=== PATIENT | female | born 1965 | race Caucasian/White ===

== ENCOUNTER 2025-01-18 11:08 | Emergency (ER) | payer BC, MEDICARE, SELFPAY ==
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
--- OUTSIDE RECORDS SUMMARY | 2022-09-18 09:18 | XMS_ITS | Continuity of Care Document ---
Author Organization [facility] b[facility]argav Address [address] [place] [address] [place] [address] Phone Care Team Providers Care Masonry Supervisor Name Role Phone Will Trace DELGADO Unavailable Unavailabl e Allergies, Adverse Reactions, Alerts Substance Reaction Status Criticality Sulfa (Sulfonamide Antibiotics) Active No Information PENICILLIN Active No Information lactase Active No Information Medications Medication Instructions Dosage Effective Dates (start - stop) Status Comments Dyanavel XR 20 mg tablet, extended release take 1 tablet by oral route every day in the morning 20 MG - Active meloxicam 15 mg tablet take 1 tablet by oral route every day 15 MG - Active Xanax 1 mg tablet take 1 tablet by oral route 3 times every day 1 MG - Active bupropion HCl XL 150 mg 24 hr tablet, extended release take 1 tablet by oral route every day 150 MG - Active fluoxetine 20 mg capsule take 1 capsule by oral route every day in the morning 20 MG - Active ACETAMINOPHEN-CODE INE (unknown strength) take 1 - 2 tablet by oral route every 6 hours as needed Not Available - Active Procedures Procedure Date OFFICE/OUTPATIENT VISIT, NEW Advance Directives Directive Yes / No Effective Date File Name No Information Encounters Encounter Description Practice Location Reason(s) For Visit Diagnoses Date Provider Providers Copied on Encounter [facility], [address] [place] [address] [place], [id number] , [place] tel: [phone] [facility] No Information 3 Will Trace. [address] [facility] Janie Clarklawanda [place], [place], [id number] , [place]. tel: [phone] [facility], [address] [facility] [place], [id number] , [place] tel: [phone] [facility] [place] No Information 2 Will Trace. [address] [place], [id number] , [place]. tel: [phone] OFFICE/OUTPA TIENT VISIT, [facility], [address] [place], [id number] , [place] tel: [phone] [facility] Widespread pain (chief complaint) Chronic pain syndromeOther cervical disc degeneration at C5-C6 levelOther intervertebral disc degeneration, lumbar regionBilateral primary osteoarthritis of kneeCervicalgiaOt her longwall shearer operator (current) drug therapyEncounter for therapeutic drug level monitoring 2 Will Trace. [address] [place], [id number] , [place]. tel: [phone] Referring Provider: [address], [place], [address]. [phone] Family History Family Member Type Diagnosis Age At Onset No Information Payers Payer name Insurance type Covered alliance party ID Authoriza tioscar(s) Blue Cross Atul Apodaca BL [id number] 7 Social History Type Description Quantity Date Captured Comments Sex Female Smoking Status No Information Chief Complaint And Reason For Visit No Information Reason For Referral Reason For Referral No Information Plan Of Treatment Date Type Action Status Goal Tobacco Use. Due on 023 due [...] Goal PHQ-9. Due on du e Goal Weight. Due on d ue Goal HPV. Due on due Goal Zoster vaccine ( ). Due on due Goal Review Allergy L ist. Due on due Goal FIT. Due on due Goal HPV. Due on due Goal Weight. Due on d ue Goal Lipid panel. Due on due Goal Review Allergy L ist. Due on due Goal FIT. Due on due Goal Height. Due on d ue Goal Unhealthy drug u se screening. Due on due Goal Medication Recon ciliation. Due on due Goal FIT-DNA. Due on due Goal Zoster vaccine ( ). Due on due Goal Update Social Hi story. Due on due Goal CT-Colonography. Due on due Goal Tobacco Use. Due on due Goal PHQ-9. Due on du e Goal Hepatitis C scre ening. Due on due Future Order: Radiology Order MR I Cervical Spine W/O Dye ([id number]), Ordered on: Ordered History Of Present Illness Encounter Date Complaint History Of Prese nt Illness Widespread pain Severity level i s 10. Location of the pain is lower back, neck, bilateral knee and bilateral mid foot. It occurs persistently. The problem is stable. Symptom is aggravated by bending, sitting, standing, walking, lifting, lying down, stairs and movement. Relieving factors include heat, cold and chiropractic. Comments: Shira recio resents for a new [...] her right knee with very limited relief. Functional Status Date Functional Assessmen t No Information Instructions Date Instruction Additional Infor mation No Information Assessments Type Assessment Date No Information Patient Care Teams Name Effective Dates (start - stop) Status Members No Information
--- OUTSIDE RECORDS SUMMARY | 2025-01-18 11:11 | XMS_ITS | Clinical Summary ---
Author Organization [facility] Address [address] [place] [id number] Care Team Providers Care Intake Counselor Name Role Phone Carmelita Bruce Primary Care Provider Allergies Active Allergy Reactions Criticality Noted Date Comments Meperidine Edema 06/25/2007 Haloperidol Other - Describe In Comment Field 11/04/2016 Neurologic reaction Penicillins Rash 06/25/2007 Sulfa (Sulfonamide Antibiotics) 06/25/2007 Sertraline Rash,Itching 06/25/2007 Medications Amphetamine-Dext roamphetamine (ADDERALL) 30 mg tablet Take 1 tablet by mouth once daily 0 05/29/20 18 Active dextroamphetamin e-amphetamine (ADDERALL) 20 mg tablet TAKE 1 TABLET BY MOUTH ONCE A DAY IN THE AFTERNOON IN ADDITION TO SCHEDULED MORNING DOSE. 08/08/19 21 Active ALPRAZolam (XANAX) 0.5 mg tablet 06/05/20 21 Active betamethasone dipropionate 0.05% (DIPROSONE LOTION 0.05%) lotionIndication s:Scalp psoriasis APPLY TOPICALLY TO AFFECTED AREA TWICE A DAY 60 mL 1 02/26/20 23 Active FLUoxetine (PROZAC) 40 mg capsule Take 40 mg by mouth once daily. 01/06/20 24 Active gabapentin (NEURONTIN) 300 mg capsuleIndicatio ns:Carpal tunnel syndrome on left TAKE 1 CAPSULE BY MOUTH THREE TIMES DAILY. MORNING, MIDDAY AND EARLY EVENING PLUS 600MG AT BEDTIME. 270 Capsule 3 03/22/20 24 Active busPIRone (BUSPAR) 15 mg tablet Take 15 mg by mouth two times daily. Active acetaminophen-co deine (TYLENOL #3) 300-30 mg per tabletIndication s:Lumbar radiculopathy TAKE 1 TABLET BY MOUTH 3 TIMES DAILY IF NEEDED FOR PAIN. 60 Tablet 1 08/15/19 25 Active mirtazapine (REMERON) 7.5 mg tablet take 1 tablet by mouth every day at night 08/09/19 25 Active fluticasone (50 mcg per actuation) nasal solution (FLONASE)Indicat ions:Bronchitis Inhale 2 Sprays in both nostrils once daily. 48 g 2 10/11/19 25 Active durable medical equipment (DME)Indications :Peroneal tendinitis of right lower extremity Airselect, Standard, Medium 01EF-M Length of Use: 99 months 12/03/19 25 Active cyclobenzaprine (FLEXERIL) 10 mg tabletIndication s:Muscle spasm TAKE 1 TABLET (10 MG) BY MOUTH 3 TIMES DAILY IF NEEDED FOR MUSCLE SPASM. 60 Tablet 3 01/06/20 25 Active gabapentin (NEURONTIN) 600 mg tabletIndication s:Cervical radiculopathy TAKE 1 TABLET BY MOUTH EVERYDAY AT BEDTIME 90 Tablet 1 01/09/20 25 Active triamcinolone 0.1 % creamIndications :Dermatitis APPLY TOPICALLY TO AFFECTED AREA (S) 3 TIMES A DAY 80 g 1 10/11/19 25 025 Discontinued(* Med complete/Regim en complete/Level of care change) gabapentin 600 mg tabletIndication s:Cervical radiculopathy TAKE 1 TABLET BY MOUTH EVERYDAY AT BEDTIME 90 Tablet 10/11/19 25 025 Discontinued cyclobenzaprine 10 mg tabletIndication s:Muscle spasm Take 1 Tablet (10 mg) by mouth 3 times daily if needed for Muscle Spasm. 60 Tablet 3 10/11/19 25 025 Discontinued Hospital, Clinic, or Other Facility Administered Medication Ordered Dose Route Frequency Start Date End Date Status betamethasone acet,sod phos 9 mg injection (CELESTONE SOLUSPAN)Indications:Osteo arthritis of right glenohumeral joint 9 mg IArtic ONE TIME 12/22/2024 12/22/2024 Ended betamethasone acet,sod phos 3 mg injection (CELESTONE SOLUSPAN)Indications:Tendo nitis of upper biceps tendon of right shoulder 3 mg IArtic ONE TIME 12/22/2024 12/22/2024 Ended Active Problems Problem Noted Date Diagnosed Date Depression, major, single episode, moderate 06/08 Arthropathy of right wrist 04/30/2015 Secondary osteoarthritis of right wrist 03/06/20 15 Medial compartment osteoarthritis of left knee 0 11/01/2014 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 08/28/2014 Kienbock's avascular necrosis of lunate, adult 0 01/19/2013 Lunate fracture, closed 01/19/2013 Anxiety disorder 12/24/2012 Migraine 07/29/2012 Dysthymic disorder 06/25/2007 Overview (06/25/2007): Depression and anxiety Resolved Problems Problem Noted Date Diagnosed Date Resolved Date Osteoarthritis of left knee 06/18/2015 09/05/2024 Osteoarthritis of left knee 06/18/2015 09/05/2024 Mild osteoarthritis of left knee 06/18/2015 01/02/2017 Tendonitis of wrist, right 08/12/2012 0 07/31/2014 Encounters Date Type Department Care Team Description 01/12/2025 Orders Only [facility] Scanner 1 scan: (1-Ord) [facility], FLUOROSCOPICALLY GUIDED INJ, 01/12/2025 01/05/2025 Refill [facility] [address] [place] [address] Carmelita Bruce PA Refill Request (Gabapentin) 01/05/2025 Refill [facility] [address] [place] [address] Alistair Fox MD Refill Request (Cyclobenzaprine) 12/27/2024 11:10 AM CDT Office Visit [facility] [address] [place] [address] Carmelita Bruce PA Blood Pressure (Was elevated when she went to chiropractor / gets dizzy sometimes) 12/27/2024 Travel 12/22/2024 8:10 AM CDT Procedure Only [facility] [address] [place] [address] Alistair Fox MD Procedure (USGI Right shoulder glenohumera... 12/22/2024 Travel 12/14/[address] [place] [address] Alistair Fox MD Immunization/Injection (intralaminar steroid epidural injection) 12/02/2024 Travel 12/01/[address] [place] [address] Alistair Fox MD DME Supply (Needs walking boot) 11/30/2024 9:00 AM CDT Procedure Only [address] [place] [address] Alistair Fox MD Procedure (US guided steroid injection rig... 11/29/2024 Travel 11/09/[address] [place] [address] Carmelita Bruce PA Medication Management (Prednisone) 11/02/2024 1:45 PM CDT Office Visit [address] [address] Ziggy Paul DPM Follow Up (Right foot-injection ) 11/02/2024 Travel 10/26/2024 12:00 PM CDT Ancillary Procedure [address] [place] [address] 10/26/2024 Travel 10/26/[address] [address] Alistair Fox MD Refill Request (Acetaminophen-codeine ) 10/25/[address] [address] Ziggy Paul DPM Medication Management 10/20/[address] [address] Carmelita Bruce PA Imaging from Last 3 Months Immunizations Immunization Administration Dates Next Due COVID-19 vaccine (Moderna 100mcg/0.5mL) MARTITA TRAVIS 08/06/2020 Influenza, IIV3 (Age >=3 years) 03/05/2011 Influenza, IIV4 04/04/2022,,03/27/2020,2018,04/04/2016,03/31/2014 Influenza, IIV4 (=>6mos) MDV 03/28/2020,03/31/20 17 Mumps 10/30/1978 Polio Virus, Unspecified 10/30/1978 Td, Preservative Free (age > = 7 Years) 09/13/2009 Tdap 03/31/2017 Family History Medical History Relation Name Comments Heart Disease Father Bypass Hyperlipidemia Father Cancer-breast Maternal Aunt over 50 Stroke Maternal Grandfather Diabetes Maternal Grandmother Arthritis Mother GI Disease Mother Ulcers Hypertension Mother Cancer Paternal Grandfather luekemi a Heart Disease Paternal Grandmother Cancer Sister Ovarian, contai elvira and removed Relation Name Status Comments Father Maternal Aunt Maternal Grandfather Maternal Grandmother Mother Paternal Grandfather Paternal Grandmother Sister Social History Tobacco Use Types Packs/Day Years Used Date Smoking Tobacco: Every Day Cigarettes 0.3 40.1 Started: 09/26/1983; Last attempted to quit: 09/30/2021 Smokeless Tobacco: Never Tobacco Cessation:Ready to Q uit: No; Counseling Given: Yes Alcohol Use Standard Drinks/Week Comments No 0 (1 standard drink = 0.6 oz pur e alcohol) sober since 1999 PHQ-2 Answer Date Recorded PHQ-2 TOTAL SCORE 1 02/06/2020 Social Connections Answer Date Recorded Do you often feel lonely or isolated from those around you? 0 05/08/2023 Financial Resource Strain Answer Date R ecorded Difficulty of Paying Living Expenses Not on file 05/08/2023 Difficulty of Paying Living Expenses 3 05/08/2023 Food Insecurity Answer Date Recorded Do you worry your food will run out before you are able to buy more? 1 05/08/2023 Transportation Needs Answer Date Record ed Does lack of transportation keep you from medica l appointments? 1 05/08/2023 Does lack of transportation keep you from work, meetings or getting things that you need? 1 05/08/2023 Housing Stability Answer Date Recorded What is your housing situation today? 1 05/08/2023 Comments No Sex and Gender Information Value Date Recorded Sex Assigned at Not on file Legal Sex Female 5:25 AM ENVIRONMENTAL HEALTH SAFETY MANAGER Gender Identity Not on file Sexual Orientation Not on file Occupation Industry Job Start Date Job End Date Not on file Not on file Not on file Not on file Obstetrics History Para Term AB IAB SAB Ectopic Multiple Livin g Live Births 2 2 0 2 Date Outcome GA Total Labor Labor/2nd/3rd Weight Sex Type Anes PTL Ellen A1 A5 Name Clin Para C-Secti on Para C-Secti on Last Filed Vital Signs Vital Sign Reading Time Taken Comments Blood Pressure 131/80 12/27/2024 11:17 AM CDT Pulse 81 12/27/2024 11:17 AM CDT Temperature 36.5 C (97.7 F) 12/22/2024 8:28 AM CDT Respiratory Rate 16 09/25/2020 10:30 AM CDT Oxygen Saturation 99% 12/22/2024 8:28 AM CDT Inhaled Oxygen Concentration - - Weight 76.7 kg (169 lb) 12/27/2024 11:17 AM CDT Height 159 cm (5' 2.6) 05/08/2023 3:18 PM ENVIRONMENTAL HEALTH SAFETY MANAGER Body Mass Index 30.32 05/08/2023 3:18 PM ENVIRONMENTAL HEALTH SAFETY MANAGER Plan of Treatment Upcoming Encounters Date Type Department Care Team (Late st Contact Info) Description 02/08/2025 11:00 AM CDT Office Visit [facility] [address] [place] [address] Alistair Fox MD [address] [place] [address] 02/10/2025 10:30 AM CDT Procedure Only [facility] [address] [place] [address] [facility] [address] [place] [address] 02/13/2025 3:20 PM CDT Office Visit [facility] [address] [place] [address] Carmelita Bruce PA [address] [place] [address] 02/27/2025 7:30 AM CDT Hospital Encounter [facility] [address] [place] [address] Ziggy Paul DPM [address] [place] [address] 02/27/2025 7:30 AM CDT - 02/27/2025 9:30 AM CDT Surgery [facility] [address] [place] [address] Ziggy Paul DPM [address] [place] [address] REPAIR PERONEAL TENDON 03/01/2025 1:00 PM CDT Office Visit [facility] [address] [place] [address] Ziggy Paul DPM [address] [place] [address] 03/14/2025 1:00 PM CDT Office Visit [facility] [address] [place] [address] Ziggy Paul DPM [address] [place] [address] 04/11/2025 3:00 PM ENVIRONMENTAL HEALTH SAFETY MANAGER Office Visit [facility] [address] [place] [address] Ziggy Paul DPM [address] [place] [address] Scheduled Procedures Name Priority Associated Diagnoses Date/Ti me REPAIR PERONEAL TENDON Elective Peroneal tendinitis of right lower extremity 02/27/2025 7:30 AM CDT Health Maintenance Due Date Last Done Comments Pneumococcal series for age 50+ (1 of 2 - PCV) 1982 Zoster (shingles) series for age 50+ (1 of 2) 2013 Mammogram for age 45-75 07/06/2019 07/06/19 19, 11/17/2012, 03/05/2011, Additional history exists Depression screening for age 12+ 02/05/2021 02/06/2020, 09/21/2017, 06/07/2016, Additional history exists Pap test for age 21-65 07/06/2023 9, 07/06/2018, 11/17/2012, Additional history exists COVID-19 vaccine series ( season) 2024 05/16/2021, 09/27/2020, 08/06/2020 BMI (ht and wt on same day) for age 18+ 05/08/2024 05/08/2023, 12/29/2022, 07/29/2022, Additional history exists Influenza Vaccine (#1) 2025 2, 03/27/2021, 03/28/2020, Additional history exists Tetanus booster 03/31/2027 03/31/2017, 09/13/2009 Fecal testing sDNA-FIT (Cologuard) for age 45-75 11/10/2027 11/09/2024 Lipids for age 45-75 12/30/2027 12/29/2022, 02/13/2021, 07/06/2018, Additional history exists RSV vaccine for adults or (1 - 1-dose 75+ series) 2038 HIV for age 15-65 Completed 06/29/2007 Hepatitis C screening for age 18-79 Completed 07/06/2018 Hepatitis B series for 19+ Aged Out N o longer eligible based on patient's age to complete this topic Goals Goal Patient Goal Type Associated Problems Recent Progress Patient-Stated? Author Autogenera alayna Goal Care Plan Autogenerated Problem No Mychart, Provider Procedures Procedure Name Priority Date/Time Associated Diagnosis Comments SCAN-OPERATIVE/PROCED URE REPORT 01/12/2025 12:00 AM CDT COMP METABOLIC PANEL Routine 12/27/2024 12:26 PM CDT Fatigue, unspecified type CBC WITH AUTO DIFFERENTIAL Routine 12/27/2024 12:26 PM CDT Fatigue, unspecified type BEDSIDE US STUDY ARCHIVE Routine 12/22/2024 8:47 AM CDT BEDSIDE US STUDY ARCHIVE Routine 11/30/2024 10:15 AM CDT Peroneal tendinitis of right lower extremity SDNA-FIT EXTERNAL (COLOGUARD) Routine 11/09/2024 11:00 AM CDT Screening for colorectal cancer XR KNEE WB 1 VIEW AP BILATERAL AND 2 VIEWS RIGHT Routine 10/26/2024 12:10 PM CDT S/P total knee arthroplasty, right LIPID PANEL W REFLEX MEASURED LDL Routine 12/29/2022 2:46 PM CDT Screening cholesterol level XR MAMMO BILAT SCREENING Routine 07/06/2018 2:09 PM ENVIRONMENTAL HEALTH SAFETY MANAGER Visit for screening mammogram ANTI HCV Routine 07/06/2018 1:50 PM ENVIRONMENTAL HEALTH SAFETY MANAGER Need for hepatitis C screening test QUARTER [employer]PER[employer] THIN PREP PAP SCREEN IMAGED Routine 07/06/2018 1:29 PM ENVIRONMENTAL HEALTH SAFETY MANAGER Pap smear for cervical cancer screening ANTI HIV 1/2 Routine 06/29/2007 3:56 PM ENVIRONMENTAL HEALTH SAFETY MANAGER Screening Exam Venereal Disease from Last 3 Months or Most Recently Relevant to Health Maintenance Results * SCAN-OPERATIVE/PROCEDURE REPORT (01/12/2025 12:00 AM CDT) us Scanner OTHER Final Result * (ABNORMAL) CBC AND DIFFERENTIAL (12/27/2024 12:26 PM CDT) WHITE BLOOD CELL COUNT 7.4 3.8 - 10.8 Thousand/u L [facility] RED BLOOD CELL COUNT 4.45 3.80 - 5.10 Million/uL [facility] HEMOGLOBIN 13.4 11.7 - 15.5 g/dL [facility] HEMATOCRIT 43.3 35.0 - 45.0 % [facility] MCV 97.3 80.0 - 100.0 fL [facility] MCH 30.1 27.0 - 33.0 pg [facility] MCHC 30.9(L) 32.0 - 36.0 g/dL [facility] Comment: For adults, a slight decrease in the calculated MCHC value (in the range of 30 to 32 g/dL) is most likely not clinically significant; however, it should be interpreted with caution in correlation with other red cell parameters and the patient's clinical condition. RDW 14.2 11.0 - 15.0 % [facility] PLATELET COUNT 356 140 - 400 Thousand/u L [facility] MPV 10.6 7.5 - 12.5 fL [facility] ABSOLUTE NEUTROPHILS 4,544 1,500 - 7,800 cells/uL [facility] ABSOLUTE LYMPHOCYTES 2,190 850 - 3,900 cells/uL [facility] ABSOLUTE MONOCYTES 459 200 - 950 cells/uL [facility] ABSOLUTE EOSINOPHILS 148 15 - 500 cells/uL [facility] ABSOLUTE BASOPHILS 59 0 - 200 cells/uL [facility] NEUTROPHILS 61.4 % [facility] LYMPHOCYTES 29.6 % [facility] MONOCYTES 6.2 % [facility] EOSINOPHILS 2.0 % [facility] BASOPHILS 0.8 % [facility] Blood BLOOD SPECIMEN / Unknown 12/27/2024 12:26 PM CDT 12/27/2024 12:26 PM CDT us Carmelita CHU HEMATOLOGY Final R esult [facility] [address] [place] [address], [employer] [address] [place] [address] * COMP METABOLIC PANEL (12/27/2024 12:26 PM CDT) GLUCOSE 85 65 - 99 mg/dL [facility] Comment: Fasting reference interval UREA NITROGEN (BUN) 10 7 - 25 mg/dL [facility] CREATININE 0.91 0.50 - 1.05 mg/dL [facility] EGFR 72 > OR = 60 mL/min/1. 73m2 [facility] BUN/CREATININE RATIO SEE NOTE: (calc) [facility] Comment: Not Reported: BUN and Creatinine are within reference range. SODIUM 140 135 - 146 mmol/L [facility] POTASSIUM 4.4 3.5 - 5.3 mmol/L [facility] CHLORIDE 104 98 - 110 mmol/L [facility] CARBON DIOXIDE 28 20 - 32 mmol/L [facility] CALCIUM 9.3 8.6 - 10.4 mg/dL [facility] PROTEIN, TOTAL 7.0 6.1 - 8.1 g/dL [facility] ALBUMIN 4.3 3.6 - 5.1 g/dL [facility] GLOBULIN 2.7 1.9 - 3.7 g/dL (calc) [facility] ALBUMIN/GLOBULIN RATIO 1.6 1.0 - 2.5 (calc) [facility] BILIRUBIN, TOTAL 0.6 0.2 - 1.2 mg/dL [facility] ALKALINE PHOSPHATASE 99 37 - 153 U/L [facility] AST 23 10 - 35 U/L [facility] ALT 23 6 - 29 U/L [facility] Blood BLOOD SPECIMEN / Unknown 12/27/2024 12:26 PM CDT 12/27/2024 12:26 PM CDT us Carmelita Nicolasa McLeran PA CHEMISTRY Final R esult [facility] [address] [place] [address], [place] [phone] [facility] [address] [place] [address] * BEDSIDE US STUDY ARCHIVE (12/22/2024 8:47 AM CDT) Narrative Ashley Ramirez - 12/22/2024 8:47 AM CDT The patient was seen for ultrasound guided injection by Dr. Ailstair Fox. Ultrasound was not used for diagnostic purposes, but to guide the needle placement and document the position of the injection. See patient's EPIC encounter for the detail of the procedure; see MITCH for saved images of the injection. Alistair Fox MD PROCEDURE ORD Final Resu lt * BEDSIDE US STUDY ARCHIVE (11/30/2024 10:15 AM CDT) Narrative Melodie Dumont R.T. (ARRT) - 11/30/2024 10:15 AM CDT The patient was seen for ultrasound guided injection by Dr. Alistair Fox. Ultrasound was not used for diagnostic purposes, but to guide the needle placement and document the position of the injection. See patient's EPIC encounter for the detail of the procedure; see MITCH for saved images of the injection. Alistair Fox MD PROCEDURE ORD Final Resu lt * SDNA-FIT EXTERNAL (COLOGUARD) [[id number]] (11/09/2024 11:00 AM CDT) NONINV COLON CA DNA+OCC BLD SCRN STL-IMP Negative Negative 11/14/2024 11:45 AM CDT [facility] (CLIA #:[id number]) Comment: The Cologuard (TM) test was performed on this specimen. NEGATIVE TEST RESULT. A negative Cologuard result indicates a low likelihood that a colorectal cancer (CRC) or advanced adenoma (adenomatous polyps with more advanced pre-malignant features) is present. The chance that a person with a negative Cologuard test has a colorectal cancer is less than 1 in 1500 (negative predictive value >99.9%) or has an advanced adenoma is less than 5.3% (negative predictive value 94.7%). These data are based on a prospective cross-sectional study of 10,000 individuals at average risk for colorectal cancer who were screened with both Cologuard and colonoscopy. (Jacque Marie et al, N Engl J Med 2014;370(14):1286- 1297) The normal value (reference range) for this assay is negative. COLOGUARD RE-SCREENING RECOMMENDATION: Periodic colorectal cancer screening is an important part of preventive healthcare for asymptomatic individuals at average risk for colorectal cancer. Following a negative Cologuard result, the [employer] and U.S. Multi-Society Task Force screening guidelines recommend a Cologuard re-screening interval of 3 years. References: [employer] Guideline for Colorectal Cancer Screening: https://www.cancer.org/cancer/ttghl-qksezr-amfksg/mokegskxl-bfuosrgzl-mwbujcp/ac s-rec ommendations.html.; Jesús DK, Erika CR, Lorena CastilloK, Colorectal Cancer Screening: Recommendations for Physicians and Patients from the U.S. Multi-Society Task Force on Colorectal Cancer Screening , Am J Gastroenterology 2017; 112:1966-8450. TEST DESCRIPTION: Composite algorithmic analysis of stool DNA-biomarkers with hemoglobin immunoassay. Quantitative values of individual biomarkers are not reportable and are not associated with individual biomarker result reference ranges. Cologuard is intended for colorectal cancer screening of adults of either sex, 45 years or older, who are at average-risk for colorectal cancer (CRC). Cologuard has been approved for use by the U.S. FDA. The performance of Cologuard was established in a cross sectional study of average-risk adults aged 50-84. Cologuard performance in patients ages 45 to 49 years was estimated by sub-group analysis of near-age groups. Colonoscopies performed for a positive result may find as the most clinically significant lesion: colorectal cancer [4.0%], advanced adenoma (including sessile serrated polyps greater than or equal to 1cm diameter) [20%] or non- advanced adenoma [31%]; or no colorectal neoplasia [45%]. These estimates are derived from a prospective cross-sectional screening study of 10,000 individuals at average risk for colorectal cancer who were screened with both Cologuard and colonoscopy. (Jacque Puentes al, N Engl J Med 2014;370(14):1206-6373.) Cologuard may produce a false negative or false positive result (no colorectal cancer or precancerous polyp present at colonoscopy follow up). A negative Cologuard test result does not guarantee the absence of CRC or advanced adenoma (pre-cancer). The current Cologuard screening interval is every 3 years. ([employer] and U.S. Multi-Society Task Force). Cologuard performance data in a 10,000 patient pivotal study using colonoscopy as the reference method can be accessed at the following location: www.V[employer]omics/results. Additional description of the Cologuard test process, warnings and precautions can be found at www.UBEnX.comrd.com. Stool specimen (specimen) (Rectum) 11/09/2024 11:00 AM CDT 11/10/2024 12:27 PM CDT Carmelita CHU URINE Final R esult [facility] (CLIA #:[id number]) [address] [place] [address], * XR KNEE WB 1 VIEW AP BILATERAL AND 2 VIEWS RIGHT (10/26/2024 12:10 PM CDT) Anatomical Region Laterality Modality KNEES, KNEE R Computed Radiogr aphy 10/26/2024 3:32 PM CDT Impressions 10/26/2024 3:32 PM CDT Knee replacement intact bilaterally. No fracture. Alignment normal. Dictated by Bradly Messina MD @ 10/26/2024 3:32:48 PM (Electronically Signed) Narrative 10/26/2024 3:32 PM CDT For Patients: As a result of the Century Cures Act, medical imaging exams and procedure reports are released immediately into your electronic medical record. You may view this report before your referring provider. If you have questions, please contact your health care provider. Indication: S/P total knee arthroplasty, right Technique: XR KNEE WB 1 VIEW AP BILATERAL AND 2 VIEWS RIGHT Comparison: 02/24/2022 Procedure Note Bradly Messina MD - 10/26/2024 For Patients: As a result of the Cures Act, medical imagingexams and procedure reports are released immediately into your electronicmedical record. You may view this report before your referring provider.If you have questions, please contact your health care provider. Indication: S/P total knee arthroplasty, right Technique: XR KNEE WB 1 VIEW AP BILATERAL AND 2 VIEWS RIGHT Comparison: 02/24/2022 IMPRESSION: Knee replacement intact bilaterally. No fracture. Alignment normal. Dictated by Bradly Messina MD @ 10/26/2024 3:32:48 PM (Electronically Signed) [facility] GENERAL IMAGING Final Result * (ABNORMAL) LIPID PANEL W REFLEX MEASURED LDL (12/29/2022 2:46 PM CDT) CHOLESTEROL,TOTAL 234(H) 100 - 199 mg/dL 12/30/2022 1:16 AM CDT [facility] Comment: Cholesterol, Total Reference Ranges Desirable <200 mg/dL Borderline 200-239 mg/dL High >=240 mg/dL TRIGLYCERIDES 53 <150 mg/dL 12/30/2022 1:16 AM CDT [facility] HDL CHOLESTEROL 100 >40 mg/dL 3 1:16 AM CDT [facility] NON-HDL CHOLESTEROL 134 <145 mg/dl 12/30/2022 1:16 AM CDT [facility] CHOL/HDL RATIO 2.34 <4.50 12/30/2022 1:16 AM CDT [facility] LDL CHOLESTEROL 123 <=130 mg/dL 12/30/2022 1:16 AM CDT [facility] VLDL CHOLESTEROL 11 <=30 mg/dL 12/30/2022 1:16 AM CDT [facility] TRAL LABORATORY PROVIDER ORDERED STATUS RANDOM 12/30/2022 1:16 AM CDT [facility] Blood BLOOD SPECIMEN / Unknown Venipuncture / Unknown 12/29/2022 2:46 PM CDT 12/29/2022 2:47 PM CDT Carmelita CHU CHEMISTRY Final R esult [facility] [address] [place] [address], [place] * XR MAMMO BILAT SCREENING (07/06/2018 2:09 PM ENVIRONMENTAL HEALTH SAFETY MANAGER) Anatomical Region Laterality Modality BREASTS, Breast Left, Breast Right Bilateral Mammography Impressions 07/07/2018 12:16 PM ENVIRONMENTAL HEALTH SAFETY MANAGER There is no radiographic evidence for malignancy. Recommend annual mammograms. A lay language report of this examination will be provided to the patient. MAMMOGRAM ASSESSMENT: ACR 2 Benign Narrative 07/07/2018 12:16 PM ENVIRONMENTAL HEALTH SAFETY MANAGER XR MAMMO BILAT SCREENING [[id number]] CLINICAL HISTORY: This is an asymptomatic 52 y.o. patient. INDICATION FOR EXAM: Mammogram Screening. TECHNIQUE: CC & MLO views were obtained. This digital study was evaluated with the assistance of Computer-Aided Detection. COMPARISON FILMS: Yes 11/17/12 [facility] 03/05/11 [facility] FINDINGS: Mammographically, the breast tissue has scattered fibroglandular densities. No suspicious masses or microcalcifications. Benign appearing calcifications within both breasts. Carmelita CHU MAMMO Final R esult * ANTI HCV [[id number]] (07/06/2018 1:50 PM ENVIRONMENTAL HEALTH SAFETY MANAGER) HEPATITIS C ANTIBODY Non-React zuly Non-React zuly 07/06/2018 7:46 PM ENVIRONMENTAL HEALTH SAFETY MANAGER [facility] Comment:Antibodies to HCV no t detected; does not exclude the possibility of exposure to HCV. Blood BLOOD SPECIMEN / Unknown Venipuncture / Unknown 07/06/2018 1:50 PM ENVIRONMENTAL HEALTH SAFETY MANAGER 07/06/2018 1:50 PM ENVIRONMENTAL HEALTH SAFETY MANAGER us Carmelita CHU SEND OUTS Final R [facility] [address] [place] [address], [place] * QUARTER SUPERVISOR THIN PREP PAP SCREEN IMAGED (07/06/2018 1:29 PM ENVIRONMENTAL HEALTH SAFETY MANAGER) Case Report Gynecologic Cytology Report Case: [id number] Authorizing Provider: Carmelita Bruce PA Collected: 07/06/2018 1329 Ordering Location: [facility] Received: 07/06/2018 1402 Clinic First Screen: Maday Canela Specimen: QUARTER SUPERVISOR ThinPrep Vial Screening, Cervical 07/16/2018 10:31 AM [facility] INTERPRETATION/ RESULT NEGATIVE FOR INTRAEPITHELIAL LESION OR MALIGNANCY (NIL) (none) 07/16/2018 10:31 AM [facility] at 1031 ENVIRONMENTAL HEALTH SAFETY MANAGER SPECIMEN ADEQUACY Satisfactory for evaluation No endocervical component seen 07/16/2018 10:31 AM [facility] ENTRCT LABORATORY HPV REQUEST HPV and PAP 07/16/2018 10:31 AM [facility] Date of LMP unknown 07/16/2018 10:31 AM [facility] Last Pap Date 11/17/2012 07/16/2018 10:31 AM [facility] Last Pap Result NIL 9 10:31 AM [facility] ENTRAL [facility] Abnormal Pap or [place] Bx in last 5 years No 07/16/2018 10:31 AM [facility] Menstrual Status Ablation 07/16/2018 10:31 AM [facility] EN[facility]AL [facility] [place] Bx Done Today No 07/16/2018 10:31 AM [facility] EN[facility]AL [facility] Additional Information None given 07/16/2018 10:31 AM [facility] ENTR[facility] Automated Review Successful 07/16/2018 10:31 AM [facility] Comment:Specimen processed s uccessfully by automated water quality control engineer device, ThinPrep Imaging System, [employer] ANCILLARY TESTING QUARTER SUPERVISOR HPV Ordered, Please see separate report 07/16/2018 10:31 AM [facility] Note The pap test is a screening technique, not a diagnostic procedure. It is used primarily to screen for squamous cancers and precursor lesions. Published studies have shown that it is subject to both false negative and false positive results. The pap test should not be used as the sole means to diagnose or exclude pre-malignant and malignant lesions. Cytology is screened and interpreted at [facility] - [address], [place] [address] and [facility] - [address]; [place] [address] and [facility] - [address]; [place] [address] and [facility] [address]; [place] [address] 07/16/2018 10:31 AM [facility] Other (Cervical) Non-Blood / Unknown 07/06/2018 1:29 PM ENVIRONMENTAL HEALTH SAFETY MANAGER 07/06/2018 2:02 PM ENVIRONMENTAL HEALTH SAFETY MANAGER Carmelita CHU PATHOLOGY/CYTOLOGY Cynthia l Result [facility] [address] [place] [address], [place] * ANTI HIV 1/2 (06/29/2007 3:56 PM ENVIRONMENTAL HEALTH SAFETY MANAGER) ANTI HIV 1/2 Non-reacti ve [facility] Blood specimen (specimen) BLOOD SPECIMEN / Unknown 06/29/2007 3:56 PM ENVIRONMENTAL HEALTH SAFETY MANAGER 06/29/2007 3:50 PM ENVIRONMENTAL HEALTH SAFETY MANAGER us Arianna Ardon NP SEND OUTS F inal Result [facility] [place]NAL ZIP [id number] [place] [address] from Last 3 Months or Most Recently Relevant to Health Maintenance Additional Health Concerns Active Problems Noted Date Diagnosed Date Autogenerated Problem 11/29/2024 Infection Onset Date Last Indicated ESBL 05/29/2018 07/20/2018 Insurance MEDICARE PB ONLY BLUE CROSS OF NON-[facility] MEDICARE PART A HB ONLY MEDICARE PART B HB ONLY Care Teams Intake Counselor Relationship Specialty Start Date End Date Carmelita Bruce PA [address] [place] [address] PCP - General 08/13/09
[2025-01-18 11:12] VITALS: BP 145/95; PULSE 94; RESP 18; TEMP 37.2; O2SAT 95; BMI 28.3
[2025-01-18] MEDS: TETANUS/DIPHTH/PERTUSSIS 0.5 ML SYRINGE IM (11:38)
--- NOTE | 2025-01-18 11:44 | ED.WOUNDLAC ---
HPI - Wound/Laceration General Chief Complaint: Laceration/Wound Stated Complaint: left leg cut Time Seen by Provider: 01/18/25 11:22 History of Present Illness HPI narrative: This 59-year-old female comes in with a laceration to the anterior aspect of her left lower leg. She was carrying a cage that was going to be used to trap a raccoon. She did not have any contact with the raccoon or other wild animal but bumped herself with the cage and has a 3 cm irregular laceration on the anterior aspect of her left lower extremity about custodial between her ankle and knee. Her tetanus status is not up-to-date. This wound occurred about 20 hours prior to arrival. Related Data Home Medications ?Medication ?Instructions ?Recorded ?Confirmed alprazolam 0.5 mg tablet 0.5 mg PO QDAY 12/17/21 01/18/25 dextroamphetamine-amphetamine ER 30 mg PO QAM 12/17/21 01/18/25 30 mg 24hr capsule,extend release fluoxetine 20 mg tablet 60 mg PO QDAY 12/17/21 01/18/25 tizanidine 4 mg tablet 4 mg PO .as needed PRN 12/17/21 01/18/25 cyclobenzaprine 10 mg tablet 10 mg PO 3XD PRN muscle spasm 01/18/25 01/18/25 gabapentin 300 mg capsule 300 mg PO 3XD 01/18/25 01/18/25 gabapentin 600 mg tablet 600 mg PO QPM 01/18/25 01/18/25 Allergies Allergy/AdvReac Type Severity Reaction Status Date / Time haloperidol Allergy Severe Tongue Verified 01/18/25 11:22 swells, unable to walk penicillin V Allergy Severe States Verified 01/18/25 11:22 unknown, reaction as an infant meperidine Allergy Mild swelling Verified 01/18/25 11:22 sertraline Allergy Mild Hives Verified 01/18/25 11:22 Sulfa (Sulfonamide Allergy Mild Hives Verified 01/18/25 11:31 Antibiotics) lactose Allergy Unknown Nausea, Verified 01/18/25 11:22 headaches meprobamate AdvReac Severe swelling Verified 01/18/25 11:22 Review of Systems Status of ROS: Reports: 10 or more systems reviewed and unremarkable except as noted in History and below Narrative: Constitutional: No fevers, no weight gain or loss. Eyes: No discharge. No vision changes. HENT: No congestion, no sore throat, no ear pain. Cardiovascular: No chest pain, no palpitations. Respiratory: No shortness of breath, no wheezes, no cough. Gastrointestinal: No abdominal pain, no vomiting, no diarrhea. Genitourinary: No dysuria, no hematuria. Musculoskeletal: Normal range of motion. Skin: No rashes, no pruritis. Neurological: No dizziness, weakness, sensory change, speech change. Endo/Heme/Allergies: No bruising or bleeding. No polydipsia. Pysch: no suicidality, no anxiety, no insomnia. All other systems reviewed and are negative. [facility] Medical History (Updated 01/18/25 @ 11:47 by Pelon Marie MD) Arthritis ?M19.90 - Unspecified osteoarthritis, unspecified site (ICD-10) Bulging disc Stomach problems ?K31.9 - Disease of stomach and duodenum, unspecified (ICD-10) Encounter for screening for severe acute respiratory syndrome coronavirus 2 (SARS-CoV-2) infection ?Z11.52 - Encounter for screening for COVID-19 (ICD-10) Surgical History (Updated 02/04/22 @ 10:40 by Nuzhat Padgett) History of foot surgery ?Z98.890 - Other specified postprocedural states (ICD-10) History of prior ablation treatment ?Z98.890 - Other specified postprocedural states (ICD-10) History of hand surgery ?Z98.890 - Other specified postprocedural states (ICD-10) History of 2 sections ?Z98.891 - History of uterine scar from previous surgery (ICD-10) S/P total knee arthroplasty (10/28/21) ?Z96.659 - Presence of unspecified artificial knee joint (ICD-10) Family History Father Heart problem Osteoarthritis Maternal Grandfather Heart problem Maternal Grandfather Heart problem Mother High blood pressure Stroke Osteoarthritis Paternal Grandfather Stroke Paternal Grandmother Stroke Other Ovarian cancer Social History (Updated 03/14/22 @ 11:47 by Michaelle Johnson [facility], [facility]) Smoking Status: Current every day smoker Do you use any of these nicotine containing products: None Second hand tobacco smoke exposure: No Exam Narrative: Exam Narrative: Constitutional: Well-developed, well-nourished, no acute distress. HEENT: Normocephalic, atraumatic. Neck: Normal range of motion. Nontender. Supple. Heart: Intact distal pulses. Lungs: No chest discomfort. No wheezes, rhonchi, or rales. Abdomen: Nontender. Back: Normal range of motion. Extremities: Normal range of motion. 3 cm curvilinear laceration on the anterior aspect of her left lower extremity. Skin: Intact. No rash. Warm. No erythema or pallor. Neurologic: No altered sensation. No weakness. Alert and oriented. Psychiatric: No suicidality. No anxiety or depression. No insomnia. Nursing notes and vitals signs are reviewed. Const: Vital Signs, click to edit/add: Vital Signs - 24 hr 01/18/25 11:12 Temperature 99.0 F Pulse Rate [Pulse Oximeter] 94 Respiratory Rate 18 Blood Pressure [Ri ght Upper Arm] 145/95 H Pulse Oximetry 95 Oxygen Delivery Me thod Room Air Course Vital Signs Vital signs: Initial Vital Signs Temperature 99.0 F 01/18/25 11:12 Temperature Source Temporal Artery Scan 01/18/25 11:12 Pulse Rate 94 01/18/25 11:12 Respiratory Rate 18 01/18/25 11:12 Blood Pressure 145/95 H 01/18/25 11:12 Blood Pressure Mean 111 H 01/18/25 11:12 Blood Pressure Position Sitting 01/18/25 11:12 Pulse Oximetry 95 01/18/25 11:12 Oxygen Delivery Method Room Air 01/18/25 11:12 Vital Signs Temperature 99.0 F 01/18/25 11:12 Pulse Rate 94 01/18/25 11:12 Respiratory Rate 18 01/18/25 11:12 Blood Pressure 145/95 H 01/18/25 11:12 Pulse Oximetry 95 01/18/25 11:12 Oxygen Delivery Method Room Air 01/18/25 11:12 Temperature 99.0 F 01/18/25 11:12 Pulse Rate 94 01/18/25 11:12 Respiratory Rate 18 01/18/25 11:12 Blood Pressure 145/95 H 01/18/25 11:12 Pulse Oximetry 95 01/18/25 11:12 Oxygen Delivery Method Room Air 01/18/25 11:12 Medications Administered Medications: Discontinued Medications Generic Name Dose Route Start Last Admin Trade Name Freq PRN Reason Stop Dose Admin Diphtheria/Tetanus/Acell Pertussis 0.5 ml 01/18/25 11:29 01/18/25 11:38 Tetanus/Diphth/Pertussis 0.5 Ml Syringe IM 01/18/25 11:30 0.5 ml .ONCE ONE Administration MDM - Wound/Laceration MDM Narrative Medical decision making narrative: This patient comes in with a laceration on her left lower leg as described above. The wound occurred about 20 hours prior to arrival here. I did state that there is some increased risk for infection when the wound is not repaired within 12 hours but agreed to somewhat loosely approximate the wound edges with sutures. After anesthesia with 1% lidocaine the wound was cleansed thoroughly and then 3 sutures were placed using 4.0 Ethilon suture to approximate the wound edges. Instructions were given regarding wound care and the need to return to clinic urgent care in 7-10 days for suture removal. The patient did receive a tetanus vaccination here. Discharge Plan Discharge Clinical Impression: Laceration Patient Disposition: Home, Self-Care Condition: Improved Additional Instructions: Keep wound clean and dry. Follow-up with clinic or urgent care in 7-10 days for suture removal. Prescriptions: No Action dextroamphetamine-amphetamine 30 mg capsule,extended release 24hr 30 mg PO QAM Patient Comments: 20 mg am and 10 mg pm tizanidine 4 mg tablet 4 mg PO .as needed PRN fluoxetine 20 mg tablet 60 mg PO QDAY alprazolam 0.5 mg tablet 0.5 mg PO QDAY cyclobenzaprine 10 mg tablet 10 mg PO 3XD PRN (Reason: muscle spasm) gabapentin 600 mg tablet 600 mg PO QPM gabapentin 300 mg capsule 300 mg PO 3XD Follow Up/Referrals: Raghavendra Arceo MD [Primary Care Provider, Orthopedics] Stand Alone Forms: [facility] Info Instructions
== END 2025-01-18 12:10 | disposition home or self-care (01) ==
LOC: ED 12:00
PROVIDERS: Emergency Provider Emergency Medicine Emergency Medical Services; PCP Orthopaedic Surgery Sports Medicine
DX: S81.812A Laceration without foreign body, left lower leg, initial encounter (principal); W26.9XXA Contact with unspecified sharp object(s), initial encounter; Z23 Encounter for immunization
CPT/HCPCS: 12002; 90471; 90715; 99283; 99284